=== PATIENT | female | born 1985 | race Caucasian/White ===

== ENCOUNTER 2021-12-09 07:20 | Emergency (ER) | payer OTHER ==
[~2021-12-09] VITALS: Ht 162.6 cm; Wt 93.0 kg
--- NOTE | 2021-12-09 07:25 | NUR ---
Dr. Shelby examining patient.
[2021-12-09 07:39] VITALS: BP 117/58
[2021-12-09] MEDS ORDERED: NACL 0.9% 1,000 ML IV ONE (07:40)
[2021-12-09] MEDS ORDERED: LIDOCAINE MPF 1% 10 MG/ML VIAL IM ONE (07:40)
[2021-12-09] MEDS ORDERED: MORPHINE SULFATE 4 MG/ML SYR IVP ONE (07:40)
[2021-12-09] MEDS ORDERED: AMPICILLIN/SULBACTAM 1.5 GM in NACL 0.9% 50 ML IV ONE (07:40)
--- NOTE | 2021-12-09 07:43 | NUR ---
36/F PRESENTS TO ED WITH DOG BITE TO LEFT LOWER EXTREMITY. PATIENT STATES SHE WAS BIT BY A "STRAY PIT BULL" AT A LOCAL PARK X20 MIN AGO. BLEEDING CONTROLLED WITH PRESSURE DRESSING IN PLACE. TWO LARGE LACERATIONS NOTED TO LOWER LEG.
[2021-12-09] MEDS ORDERED: LIDOCAINE/EPI 1% 1:100000 20 ML VIAL INJ ONE ×3 (07:53→08:36)
[2021-12-09] MEDS ORDERED: AMPICILLIN/SULBACTAM 1.5 GM VIAL ONE (07:53)
--- NOTE | 2021-12-09 08:48 | NUR ---
lido administered by ermd. per ermd, override lido 20ml vials.
[2021-12-09 08:49] VITALS: BP 131/62
[2021-12-09] MEDS ORDERED: LIDOCAINE/EPI 2% 1:100000 20 ML VIAL INJ ONE (08:52)
[2021-12-09] MEDS ORDERED: AMOX-1230 PO (10:40)
[2021-12-09] MEDS ORDERED: BACITRACIN OINT 500 UNITS/GM PKT TP ONE ×2 (10:42→10:50)
--- NOTE | 2021-12-09 10:45 | NUR ---
Patient discharged with v/s stable. Written and verbal after care instructions given and explained. Patient alert, oriented and verbalized understanding of instructions. Ambulatory with steady gait. All questions addressed prior to discharge. ID band removed. Patient advised to follow up with PMD. Rx of ATBX given. Patient educated on indication of medication including possible reaction and side effects. Opportunity to ask questions provided and answered.
== END 2021-12-09 10:45 | disposition home or self-care (01) ==
LOC: MED 07:20
DX: S81.812A Laceration without foreign body, left lower leg, initial encounter (principal); F17.210 Nicotine dependence, cigarettes, uncomplicated; W54.0XXA Bitten by dog, initial encounter; Y93.89 Activity, other specified; Y92.89 Other specified places as the place of occurrence of the external cause; Y99.8 Other external cause status
CPT/HCPCS: 12005; 73590; 90471; 90715; 96365; 96375; 99284; J0295; J2001; J2270; J7030; Q0092; 96374

== ENCOUNTER 2021-12-20 15:23 | Inpatient (IN) | payer OTHER ==
[~2021-12-20] VITALS: Ht 162.6 cm; Wt 98.4 kg
[~2021-12-20 15:23] MED LIST: AMOX-1230 PO
--- NOTE | 2021-12-20 15:38 | NUR ---
pt name called no answer at this time
--- NOTE | 2021-12-20 15:51 | NUR ---
lwbs at this time
--- NOTE | 2021-12-20 15:51 | NUR ---
pt name called no answer at this time
--- NOTE | 2021-12-20 16:08 | NUR ---
pt entered lobby at this time
[2021-12-20 16:27] VITALS: BP 145/93
--- NOTE | 2021-12-20 16:33 | NUR ---
36 y/o female, pt here for wound recheck. pt was attacked by dog last week and had sutures placed on left lower leg. site appears red and has some swelling around area. denies nausea, vomiting, diarrhea. skin is pink/warm/dry. a&o x4 with even and steady gait. lungs clear bl, heart rate even and regular. pt denies any fever, cp, sob, or cough at this time. pt states pain is 1/10 at this time. vss. kodyd made aware of pt. pmh: denies nka med: denies
[2021-12-20] MEDS ORDERED: AMPICILLIN/SULBACTAM 3 GM in NACL 0.9% 100 ML IV ONE (17:05)
[2021-12-20 17:29] LABS: BASOPHILS # (AUTO) 0.1 K/uL (0.00-0.22); BASOPHILS % (AUTO) 0.8 % (0.0-2.0); EOSINOPHILS # (AUTO) 0.1 K/uL (0-0.4); EOSINOPHILS % (AUTO) 1.1 % (0.0-4.0); HEMATOCRIT 39.9 % (36-48); HEMOGLOBIN 13.2 g/dL (12.0-16.0); LYMPHOCYTES # (AUTO) 1.9 K/uL (2.5-16.5); LYMPHOCYTES % (AUTO) 23.1 % (20.5-51.1); MEAN CORPUSCULAR HEMOGLOBIN 30 pg (27-31); MEAN CORPUSCULAR HGB CONC 33 g/dL (33-37); MEAN CORPUSCULAR VOLUME 90.6 fL (80-94); MONOCYTES # (AUTO) 0.4 K/uL (0.8-1.0); MONOCYTES % (AUTO) 4.6 % (1.7-9.3); NEUTROPHILS # (AUTO) 5.8 K/uL (1.8-7.7); NEUTROPHILS % (AUTO) 70.4 % (42.2-75.2); PLATELET COUNT (AUTO) 414 K/uL (140-450); RED BLOOD CELL COUNT(AUTO) 4.41 MIL/uL (4.20-5.40); RED CELL DISTRIBUTION WIDTH 13.7 % (11.6-13.7); WHITE BLOOD COUNT (AUTO) 8.3 K/uL (4.8-10.8)
[2021-12-20] MEDS ORDERED: NACL 0.9% 1,000 ML IV ONE (17:40)
[2021-12-20 17:52] LABS: ALBUMIN 3.8 g/dL (3.4-5.0); ANION GAP 13.1 (8-16); CARBON DIOXIDE 29.5 mmol/L (21-32); CREATININE 0.9 mg/dL (0.6-1.3); POTASSIUM 3.6 mmol/L (3.5-5.1); TOTAL BILIRUBIN 0.4 mg/dL (0.0-1.0)
--- NOTE | 2021-12-20 19:30 | NUR ---
PATIENT CALL TO BE SWAB FOR JENNY , NO RESPONSE. CALL AT HER CELLPHONE NO ANSWERING
--- NOTE | 2021-12-20 19:43 | NUR ---
CALL FOR THE SECOND TIME ,CALLING FROM HER CELLPHONE, NO ANSWER
--- NOTE | 2021-12-20 19:55 | NUR ---
PATIENT SHOW UP. SWAB FOR JENNY DONE AND SENT TO THE LAB
[2021-12-20] MEDS ORDERED: LORazepam 1 MG TAB PO PRN (20:10)
[2021-12-20] MEDS ORDERED: ONDANSETRON 4 MG/2 ML VIAL IVP PRN (20:10)
[2021-12-20] MEDS ORDERED: ACETAMINOPHEN 325 MG TAB PO PRN (20:10)
[2021-12-20] MEDS ORDERED: ZOLPIDEM 5 MG TAB PO PRN (20:10)
[2021-12-20] MEDS ORDERED: IBUPROFEN 400 MG TAB PO PRN (20:10)
[2021-12-20] MEDS ORDERED: MORPHINE SULFATE 4 MG/ML SYR IVP PRN (20:10)
[2021-12-20] MEDS ORDERED: HYDROcodone/APAP 5/325 MG 1 TAB TAB PO PRN (20:10)
[2021-12-20] MEDS ORDERED: AMPICILLIN/SULBACTAM 3 GM VIAL ONE (22:46)
--- NOTE | 2021-12-21 00:51 | NUR ---
PT IN ROOM 5 IN [facility]. PT IS A [employer] HOLD . 20G IN L AC.
--- NOTE | 2021-12-21 01:11 | NUR ---
36YR OLD FEMALE C/O WOUND RECHECK DOG BITE L L LEG. REDDNESS AND SWELLING AROUND LACERATIONS URIAS. A&OX4 RESP EVEN AND UNLABORED. DENIES PAIN. NO DRAINAGE NOTED. PT IS ADMITED TO MEDSURG /HOLD. PT RESTING IN BED SIDE RAILS UP X1. BED AT LOWEST POSITION NKDA
--- NOTE | 2021-12-21 03:18 | NUR ---
PT UP TO BATHROOM WITH STEADY GAIT. PENDING BED STATUS.
--- NOTE | 2021-12-21 05:02 | NUR ---
COVID SWAB COLLECTED AND SENT
[2021-12-21] MEDS ORDERED: AMPICILLIN/SULBACTAM 3 GM VIAL ONE ×3 (06:31→23:42)
[2021-12-21] MEDS: AMPICILLIN/SULBACTAM 3 GM in NACL 0.9% 100 ML IV SCH ×5 (06:55→23:59)
--- NOTE | 2021-12-21 07:10 | NUR ---
MED RECONCILE UPDATED
[2021-12-21 07:17] LABS: BASOPHILS % (AUTO) 0.5 % (0.0-2.0); EOSINOPHILS # (AUTO) 0.1 K/uL (0-0.4); EOSINOPHILS % (AUTO) 1.5 % (0.0-4.0); LYMPHOCYTES # (AUTO) 2.2 K/uL (2.5-16.5); LYMPHOCYTES % (AUTO) 24.1 % (20.5-51.1); MEAN CORPUSCULAR HEMOGLOBIN 30 pg (27-31); MEAN CORPUSCULAR HGB CONC 33 g/dL (33-37); MEAN CORPUSCULAR VOLUME 90.5 fL (80-94); MONOCYTES # (AUTO) 0.7 K/uL (0.8-1.0); MONOCYTES % (AUTO) 7.4 % (1.7-9.3); NEUTROPHILS % (AUTO) 66.5 % (42.2-75.2); PLATELET COUNT (AUTO) 352 K/uL (140-450); RED BLOOD CELL COUNT(AUTO) 3.98 MIL/uL (4.20-5.40); RED CELL DISTRIBUTION WIDTH 13.6 % (11.6-13.7); WHITE BLOOD COUNT (AUTO) 9.1 K/uL (4.8-10.8)
--- NOTE | 2021-12-21 07:22 | NUR ---
REPORT RECIEVED FROM DAFNE CAMARGO FOR TRANSFER OF CARE.
[2021-12-21 07:49] LABS: ALBUMIN 3.1 g/dL (3.4-5.0); CARBON DIOXIDE 26.2 mmol/L (21-32); CREATININE 0.8 mg/dL (0.6-1.3); POTASSIUM 4.2 mmol/L (3.5-5.1); TOTAL BILIRUBIN 0.3 mg/dL (0.0-1.0)
--- NOTE | 2021-12-21 08:27 | NUR ---
Patient was offered her breakfast tray. Tray left at bedside.
[2021-12-21] MEDS: DOCUSATE SODIUM 100 MG GELCAP PO SCH (09:30)
[2021-12-21] MEDS ORDERED: VANCOMYCIN PER PHARMACY MC PRN (09:35)
[2021-12-21] MEDS: ENOXAPARIN 40 MG/0.4 ML SYR SUBQ SCH (09:37)
--- NOTE | 2021-12-21 09:38 | NUR ---
Patient's breakfast tray was set up and patient is sitting up eating food.
--- NOTE | 2021-12-21 10:10 | NUR ---
Patient ambulated to the restroom with steady gait.
[2021-12-21] MEDS: VANCOMYCIN 1,500 MG in DEXTROSE 5% 500 ML IV SCH ×2 (11:23→22:10)
--- NOTE | 2021-12-21 12:50 | NUR ---
Patient ambulated to restroom with steady gait.
--- NOTE | 2021-12-21 13:01 | NUR ---
Patient has lunch tray at bedside. Patient says she will eat later.
--- NOTE | 2021-12-21 14:06 | NUR ---
PATIENT HAS BEEN SCREENED AND CATEGORIZED LOW NUTRITION RISK. PATIENT WILL BE SEEN WITHIN 7 DAYS OF ADMISSION. 12/27/[address]
--- NOTE | 2021-12-21 15:12 | NUR ---
DC PLANNING: THE PATIENT PRESENTED FROM HOME S/P DOG BITE TO THE [facility] ON 12/09 WITH OP ABX PRESCRIBED. AREA CONTINUES TO BE RED AND WARM, PATIENT ADMITTED WITH DX OF CELLULITIS TO THE [facility]. GIVEN UNASYN IN THE ED, LACTIC ACID 3.1, HR 94, INFECTIOUS DISEASE CONSULT ORDERED. PATIENT CONTINUED ON UNASYN IV AND VANCOMYCIN, BLOOD CULTURES IN PROCESS. PATIENT TO RETURN HOME WHEN CLINICALLY STABLE, CM WILL FOLLOW.
--- NOTE | 2021-12-21 16:09 | NUR ---
Patient ambulated to restroom with steady gait.
--- NOTE | 2021-12-21 18:09 | NUR ---
Patient was offered her dinner tray. Patient is sitting up eating meal.
--- NOTE | 2021-12-21 19:19 | NUR ---
Pt report given to DAFNE Alvares. Transfer of care at this time.
--- NOTE | 2021-12-21 19:45 | NUR ---
RECEIVED REPORT FROM SAVAGE LEOS. PATIENT WAS STABLE AT THE BEDSIDE REPORT. PATIENT WAS ABLE TO VERBALIZE HER UNDERSTANDING OF HER REASON FOR HER HOSPITAL STAY. PATIENT WAS BREATHING UNLABORED. SHE DID NOT COMPLAIN OF PAIN/DISCOMFORT AT THIS TIME. PATIENT IS AMBULATORY TO RESTROOM. SIDE RAILS UP X 2 FOR COMFORT AND ADJUSTMENT. CALL LIGHT WAS WORKING AND PATIENT IS AWARE OF HOW TO USE ALL THE FUNCTIONS. PATIENT EXPLAINED TO NURSING THAT HER ROOMMATE WILL COME TO DROP OFF AN CHARGE BLOCK TO CHARGE HER PHONE BUT MADE THREATS TO COME IN AND BE AT HER SIDE. PATIENT DOES NOT WANT ANY VISITORS ESPECIALLY HIM (CHATA CASTILLO). PATIENT WAS ENCOURAGED TO USE THE CALL LIGHT FOR NEEDS AND ASSISTANCE. PATIENT UNDERSTOOD AND AGREED. [email or web address]
--- NOTE | 2021-12-21 19:46 | NUR ---
Patient will be admitted to care of . Admited to MED SURG. Will go to [facility]. Belongings list completed. Report to FREEMAN.
[2021-12-21 20:00] VITALS: BP 130/83
--- NOTE | 2021-12-21 20:34 | NUR ---
SECURITY WAS INFORMED OR PATIENT'S REQUEST FOR NO VISITORS UNLESS THEY ARE AWARE OF A PASSWORD. PATIENT TO SAY DIFFERENT. NURSING CHARGE NURSE WAS MADE AWARE OF THESE CIRCUMSTANCES. [email or web address]
--- NOTE | 2021-12-21 23:07 | NUR ---
PATIENT NOTED IN BED ON HER PHONE. NURSING NOTED SHE IS NOT IN PAIN/DISCOMFORT. IV ANTIBIOTIC WAS STARTED BY COVER RN. NO NOTED DISTRESS. SIDE RAILS UP X 2 FOR SAFETY AND COMFORT.PATIENT HAS CALL LIGHT WITHIN REACH. BED AT THE LOWEST LEVEL. [email or web address]
--- NOTE | 2021-12-22 01:46 | NUR ---
PATIENT IN BED ASLEEP. NO NOTED S/S OF PAIN/DISCOMFORT. PATIENT CHEST WAS RISING AND FALLING WITHOUT INCIDENT OF DISTRESS. SIDE RAILS UP X 2 FOR SAFETY AND COMFORT. CALL LIGHT WITHIN REACH. [email or web address]
--- NOTE | 2021-12-22 03:52 | NUR ---
PATIENT IN BED ASLEEP WITH HEAD UNDER COVERS. NURSING NOTED NO NOTED S/SX OF PAIN/DISCOMFORT. NURSING NOTED NO NOTED RESPIRATORY DISTRESS. CHEST RISING AND FALL EVENLY WITHOUT LABORED EFFORTS. SIDE RAILS UP X 4 CALL LIGHT WITHIN REACH. [email or web address] Addendum: 12/22/21 at 0356 by Ariana Morales LVN WRONG PATIENT. [email or web address]
--- NOTE | 2021-12-22 03:52 | NUR ---
PATIENT IN BED ASLEEP. NO NOTED S/SX OF PAIN/DISCOMFORT. NO NOTED RESPIRATORY DISTRESS. CHEST RISING AND FALL EVENLY WITHOUT LABORED EFFORTS. SIDE RAILS UP X 2 CALL LIGHT WITHIN REACH. [email or web address]
[2021-12-22 04:00] VITALS: BP 121/76
[2021-12-22] MEDS ORDERED: AMPICILLIN/SULBACTAM 3 GM VIAL ONE (04:43)
[2021-12-22] MEDS: AMPICILLIN/SULBACTAM 3 GM in NACL 0.9% 100 ML IV SCH ×4 (05:20→23:10)
[2021-12-22 07:19] LABS: BASOPHILS # (AUTO) 0.1 K/uL (0.00-0.22); BASOPHILS % (AUTO) 0.7 % (0.0-2.0); EOSINOPHILS # (AUTO) 0.1 K/uL (0-0.4); EOSINOPHILS % (AUTO) 1.5 % (0.0-4.0); HEMATOCRIT 37.3 % (36-48); HEMOGLOBIN 12.5 g/dL (12.0-16.0); LYMPHOCYTES # (AUTO) 2.3 K/uL (2.5-16.5); MEAN CORPUSCULAR HEMOGLOBIN 30 pg (27-31); MEAN CORPUSCULAR HGB CONC 34 g/dL (33-37); MEAN CORPUSCULAR VOLUME 90.1 fL (80-94); MONOCYTES # (AUTO) 0.4 K/uL (0.8-1.0); MONOCYTES % (AUTO) 5.3 % (1.7-9.3); NEUTROPHILS % (AUTO) 63.5 % (42.2-75.2); PLATELET COUNT (AUTO) 333 K/uL (140-450); RED BLOOD CELL COUNT(AUTO) 4.14 MIL/uL (4.20-5.40); RED CELL DISTRIBUTION WIDTH 13.7 % (11.6-13.7); WHITE BLOOD COUNT (AUTO) 7.9 K/uL (4.8-10.8)
--- NOTE | 2021-12-22 07:30 | NUR ---
RECEIVED REPORT FROM FITNESS SALES CONSULTANT NURSE. NO S/S OF DISTRESS. CALL LIGHT IN REACH. ALL SAFETY MEASURES IN PLACE. IV FLUIDS RUNNING PER MD ORDER. NO COMPLAINTS OF PAIN AT THIS TIME
[2021-12-22 07:35] LABS: FREE T4 (FREE THYROXINE) 0.71 ng/dL (0.76-1.46); THYROID STIMULATING HORMONE 14.36 uIU/mL (0.34-3.74)
[2021-12-22 07:56] LABS: ALBUMIN 3.2 g/dL (3.4-5.0); ANION GAP 10.8 (8-16); CARBON DIOXIDE 27.9 mmol/L (21-32); CREATININE 0.7 mg/dL (0.6-1.3); POTASSIUM 3.7 mmol/L (3.5-5.1); TOTAL BILIRUBIN 0.3 mg/dL (0.0-1.0)
[2021-12-22] MEDS: DOCUSATE SODIUM 100 MG GELCAP PO SCH (09:00)
--- NOTE | 2021-12-22 09:05 | NUR ---
WOUND CARE NOTE: PT. VISITED [facility] ON 12/09/2021 FOR LLE MULTIPLE DOG BITE WOUNDS WITH SUTURES DONE BY DR. ALONSO.POC DISCUSSED WITH ER DR. GARAY AND CONFIRMED SUTURES ARE NOT DISSOLVABLE. TODAY'S ASSESSMENT LLE MULTIPLE WOUNDS SUTURES IN PLACE WOUND BEDS DRY BROWN SCAB WITH LEFT MEDIAL LOWER LEG A 0.5X2CM INTACT CLEAR FLUID BLISTERING SKIN, HALLEY WOUND SKIN DRY INTACT. LLE CELLULITIS NO ERYTHEMA, NORMAL SKIN TEMP. PER. PT. LOT OF IMPROVEMENT NOTICE, PIN [id number]. INFORM REQUIRE ORDER FOR SUTURE REMOVAL. POC DISCUSSED WITH PT. WITH WOUND CARE INSTRUCTIONS GIVEN. PT. VERBALIZES UNDERSTANDING. POC DISCUSSED WITH PRIMARY RN STEVEN. RECOMMENDATIONS: -PENDING ORDER FOR SUTURES REMOVAL -APPLY VERSATEL DRESSING TO LEFT MEDIAL LOWER LEG Q5 DAYS AND PRN IF SOILING -PAINT LLE SCABS WITH BETADINE MESHA. BID AND WATERMASTER
--- NOTE | 2021-12-22 09:26 | NUR ---
EDUCATED PT ON MEDICATIONS BEING ADMINISTERED. PT REFUSED DOCUSATE DUE TO NORMAL BOWEL FUNCTION, PT WILL INFORM STAFF IF CONSTIPATION OR HARD STOOL OCCURS AND MEDICATION IS NEEDED. MEDICATION DISPOSED OF AFTER OPENING
[2021-12-22] MEDS: ENOXAPARIN 40 MG/0.4 ML SYR SUBQ SCH (09:32)
[2021-12-22] MEDS: VANCOMYCIN 1,500 MG in DEXTROSE 5% 500 ML IV SCH ×2 (11:03→23:48)
[2021-12-22 12:00] VITALS: BP 132/79
--- NOTE | 2021-12-22 14:00 | NUR ---
PT REQUESTED TO BE PREMEDICATED BEFORE SUTURE REMOVAL. ADMINISTERED PAIN MEDICATION PER MD ORDER. ALL SAFETY MEASURE IN PLACE
--- NOTE | 2021-12-22 16:14 | NUR ---
SUTURES REMOVED PER MD ORDER, PT TOLERATED WELL. NO S/S OF DISTRESS. EDEMA STILL NOTED IN LLE, COOL TO THE TOUCH, BLANCHABLE
--- NOTE | 2021-12-22 19:08 | NUR ---
ENDORSED PT TO PROOFER NURSE. NO S/S OF DISTRESS. CALL LIGHT IN REACH. ALL SAFETY MEASURES IN PLACE
--- NOTE | 2021-12-22 19:09 | NUR ---
RECEIVED REPORT FROM STEVEN MATTHEWS, PATIENT WAS STABLE DURING SHIFT REPORT. PATIENT WAS ABLE TO EXPLAIN REASON FOR HOSPITAL VISIT. PATIENT WANTS A BATH. NURSING WILL ASK FOR BATHROOM/SHOWER PRIVILEGES FROM MD. PATIENT WAS ABLE TO BREATH EVENLY WITHOUT DISTRESS. FAMILY AND PATIENT WAS EXPLAINED PLANS FOR FOR HER CARE AT THIS TIME AND POSSIBLE DISCHARGE DATE IN THE FUTURE. PATIENT DENIED ANY PAIN AT THIS TIME. SIDE RAILS UP X 2. BED AT THE LOWEST STAGE. PATIENT WAS ENCOURAGED TO USE THE CALL LIGHT FOR ASSISTANCE. PATIENT UNDERSTANDS AND AGREES. [email or web address]
[2021-12-22 20:00] VITALS: BP 131/91
--- NOTE | 2021-12-22 20:00 | NUR ---
REVIEWED PLAN OF CARE WITH KAITLYN MARTINEZ LVN. [email or web address]
[2021-12-22] MEDS: metroNIDAZOLE 500 MG TAB PO SCH (21:00)
--- NOTE | 2021-12-22 23:55 | NUR ---
PATIENT WAS ABLE TO HAVE A SHOWER PER MD ORDERS. DRESSING TO LEFT LOWER EXTREMITY WAS WRAPPED BEFORE SHOWER. ALL ORAL MEDICATIONS WERE GIVEN WITHOUT INCIDENT. NURSING INFORMED IF ANY SIDE EFFECTS ARE NOTED PLEASE USE THE CALL LIGHT TO CALL THE NURSE FOR ASSISTANCE. PATIENT UNDERSTOOD AND AGREED. [email or web address]
--- NOTE | 2021-12-23 01:40 | NUR ---
DURING ROUNDS, NURSING NOTED PATIENT ASLEEP IN BED WITHOUT INCIDENT. NO S/S OF PAIN. NO S/S OF RESPIRATORY DISTRESS. SIDE RAILS UP X 2 FOR SAFETY. CALL LIGHT WITHIN REACH FOR ASSISTANCE. [email or web address]
[2021-12-23] MEDS: GAUZE TP SCH ×2 (01:46→13:00)
--- NOTE | 2021-12-23 03:56 | NUR ---
DURING ROUNDS, NURSING NOTED PATIENT ASLEEP IN BED WITHOUT INCIDENT. NO S/S OF PAIN. NO S/S OF RESPIRATORY DISTRESS. SIDE RAILS UP X 2 FOR SAFETY. CALL LIGHT WITHIN REACH FOR ASSISTANCE/ENTERTAINMENT. [email or web address]
[2021-12-23 04:00] VITALS: BP 119/58
[2021-12-23] MEDS: AMPICILLIN/SULBACTAM 3 GM in NACL 0.9% 100 ML IV SCH ×2 (05:10→11:11)
[2021-12-23] MEDS ORDERED: LEVOTHYROXINE 0.05 MG TAB PO SCH (06:30)
[2021-12-23 07:24] LABS: HEMATOCRIT 33.4 % (36-48); HEMOGLOBIN 11.3 g/dL (12.0-16.0); LYMPHOCYTES % (AUTO) 28.4 % (20.5-51.1); MEAN CORPUSCULAR HEMOGLOBIN 31 pg (27-31); MEAN CORPUSCULAR HGB CONC 34 g/dL (33-37); MEAN CORPUSCULAR VOLUME 90.2 fL (80-94); MONOCYTES % (AUTO) 6.9 % (1.7-9.3); NEUTROPHILS % (AUTO) 61.5 % (42.2-75.2); PLATELET COUNT (AUTO) 305 K/uL (140-450); RED CELL DISTRIBUTION WIDTH 13.7 % (11.6-13.7); WHITE BLOOD COUNT (AUTO) 8.7 K/uL (4.8-10.8)
[2021-12-23 07:25] LABS: ANION GAP 9.4 (8-16); BASOPHILS # (AUTO) 0.1 K/uL (0.00-0.22); BASOPHILS % (AUTO) 0.6 % (0.0-2.0); CARBON DIOXIDE 28.9 mmol/L (21-32); EOSINOPHILS # (AUTO) 0.2 K/uL (0-0.4); EOSINOPHILS % (AUTO) 2.6 % (0.0-4.0); LYMPHOCYTES # (AUTO) 2.5 K/uL (2.5-16.5); MONOCYTES # (AUTO) 0.6 K/uL (0.8-1.0); NEUTROPHILS # (AUTO) 5.4 K/uL (1.8-7.7); POTASSIUM 3.3 mmol/L (3.5-5.1)
--- NOTE | 2021-12-23 07:25 | NUR ---
ENDORSED PATIENT CARE TO TANYA LEOS, PATIENT WAS STABLE DURING THE SHIFT CHANGE. [email or web address]
[2021-12-23 07:26] LABS: ALBUMIN 2.9 g/dL (3.4-5.0); CREATININE 0.7 mg/dL (0.6-1.3); TOTAL BILIRUBIN 0.2 mg/dL (0.0-1.0)
--- NOTE | 2021-12-23 07:30 | NUR ---
RECEIVED REPORT FROM DANCE INSTRUCTOR NURSE FOR CONTINUITY OF CARE. PATIENT ASLEEP NO DISTRESS NOTED. NO DISTRESS NOTED. RESPIRATION EVEN AND NOT LABORED NO SHORTNESS OF BREATH. ON ROOM AIR. IV SITE RIGHT HAND JCARLOS 20 SALINE LOCK.
--- NOTE | 2021-12-23 08:00 | NUR ---
Patient's Plan of Care was discussed and reviewed with OUTPATIENT COORDINATOR: TANYA
[2021-12-23] MEDS: DOCUSATE SODIUM 100 MG GELCAP PO SCH (08:40)
[2021-12-23] MEDS: metroNIDAZOLE 500 MG TAB PO SCH (08:40)
[2021-12-23] MEDS: ENOXAPARIN 40 MG/0.4 ML SYR SUBQ SCH (08:42)
--- NOTE | 2021-12-23 08:46 | NUR ---
PATIENT AWAKE ORIENTED GIVEN HER ALL DUE MEDICATION TOLERATED WELL. CALL LIGHT WITH IN EASY REACH.
--- NOTE | 2021-12-23 10:47 | NUR ---
P[ATIENT POTASSIUM LEVEL IS 3.[address] ORDER INFORM [address] BUTTS WAITING FOR RESPONSE.
[2021-12-23] MEDS: VANCOMYCIN 1,500 MG in DEXTROSE 5% 500 ML IV SCH (11:58)
--- NOTE | 2021-12-23 12:30 | NUR ---
PATIENT ALERT ON HIS BED TRIED TO EAT LUNCH. I INFORM HER OF THE DISCHARGE ORDER.
[2021-12-23] MEDS ORDERED: SYN.05 PO (12:40)
[2021-12-23] MEDS ORDERED: AMOX-999 PO (12:40)
[2021-12-23] MEDS ORDERED: SULF-59 PO (12:40)
[2021-12-23] MEDS ORDERED: POTASSIUM CHLORIDE 10 MEQ TABER PO SCH (13:00)
[2021-12-23 13:32] VITALS: BP 120/62
--- NOTE | 2021-12-23 15:41 | NUR ---
PATIENT ALERT ORIENTED NO DISTRESS NOTED. PATIENT COMPLAIN OF PAIN ON HE RIGHT HAND NOTED WITH SWELLING AND SHE SAID THE IV IS PULLED OUT ACCIDENTALLY. PUT BANDAGE AND ENCOURAGE TO ELEVATE THE HAND. TREATMENT ON LEFT LEG DONE. GIVEN DISCHARGE PACKET GIVEN WITH INSTRUCTION. VERBALIZED UNDERSTANDING.
--- NOTE | 2021-12-23 17:00 | NUR ---
PATIENT ALERT ORIENTED ON STABLE CONDITION. TOOK ALL BELONGING AND DISCHARGE PAPER. PATIENT WALK GOING OUT TO HER RIDE OUTSIDE.
== END 2021-12-23 17:00 | disposition home or self-care (01) | DRG 351 ==
LOC: MED 15:23 → MTU 20:23
PROVIDERS: ADMIT Hospitalist; ATTEND Hospitalist
DX: S81.852A Open bite, left lower leg, initial encounter (principal); E87.2 Acidosis; R65.10 Systemic inflammatory response syndrome (SIRS) of non-infectious origin without acute organ dysfunction; L03.116 Cellulitis of left lower limb; A59.9 Trichomoniasis, unspecified; E03.9 Hypothyroidism, unspecified; R74.02 Elevation of levels of lactic acid dehydrogenase [LDH]; Z20.822 Contact with and (suspected) exposure to COVID-19; W54.0XXA Bitten by dog, initial encounter; Y93.89 Activity, other specified; Y92.89 Other specified places as the place of occurrence of the external cause; Y99.8 Other external cause status
CPT/HCPCS: 36415; 80053; 80202; 83605; 84439; 84443; 85025; 87040; 87081; 96365; 96372; 99285; J0295; J1650; J3370; J7030; J7060

== ENCOUNTER 2022-03-15 22:47 | Emergency (ER) | payer OTHER ==
[~2022-03-15] VITALS: Ht 162.6 cm; Wt 98.9 kg
[~2022-03-15 22:47] MED LIST changes: -AMOX-1230 PO; +AMOX-999 PO; +SULF-59 PO; +SYN.05 PO
[2022-03-15 23:24] VITALS: BP 130/83
--- NOTE | 2022-03-15 23:29 | NUR ---
PT TAKEN TO BED 3
[2022-03-16] MEDS ORDERED: cefTRIAXone 1,000 MG in LIDOCAINE MPF 1% 2.1 ML IM ONE (01:15)
[2022-03-16] MEDS ORDERED: cefTRIAXone 1,000 MG VIAL ONE (01:23)
[2022-03-16] MEDS ORDERED: LIDOCAINE MPF 1% 5 ML ONE (01:23)
--- NOTE | 2022-03-16 01:35 | NUR ---
X-Ray at bedside.
--- NOTE | 2022-03-16 02:00 | NUR ---
Ultrasound at bedside.
[2022-03-16] MEDS ORDERED: NAPR-54 PO (02:37)
[2022-03-16] MEDS ORDERED: CEPH-588 PO (02:37)
--- NOTE | 2022-03-16 02:50 | NUR ---
Patient discharged with v/s stable. Written and verbal after care instructions given and explained. Patient alert, oriented and verbalized understanding of instructions. Ambulatory with to car. All questions addressed prior to discharge. ID band removed. Patient advised to follow up with PMD. Rx of Keflex, and Naprosyn given. Patient educated on indication of medication including possible reaction and side effects. Opportunity to ask questions provided and answered.
[2022-03-16 02:52] VITALS: BP 135/86
== END 2022-03-16 02:53 | disposition home or self-care (01) ==
LOC: MED 22:47
DX: L03.116 Cellulitis of left lower limb (principal); F17.210 Nicotine dependence, cigarettes, uncomplicated; Z72.89 Other problems related to lifestyle
CPT/HCPCS: 73590; 93971; 96372; 99284; J0696; J2001; Q0092

== ENCOUNTER 2022-03-16 22:47 | Inpatient (IN) | payer OTHER ==
[~2022-03-16] VITALS: Ht 162.6 cm; Wt 98.9 kg
[~2022-03-16 22:47] MED LIST changes: +CEPH-588 PO; +NAPR-54 PO
[2022-03-16 23:04] VITALS: BP 118/76
--- NOTE | 2022-03-16 23:12 | NUR ---
pt to lobby
[2022-03-16] MEDS ORDERED: VANCOMYCIN 1,000 MG in DEXTROSE 5% 250 ML IV ONE (23:55)
[2022-03-16] MEDS ORDERED: NACL 0.9% 1,000 ML IV ONE (23:55)
[2022-03-16] MEDS ORDERED: PIPERACILLIN/TAZOBACTAM 3.375 GM in DEXTROSE 5% 50 ML IV ONE (23:55)
[2022-03-17 00:07] LABS: BASOPHILS % (AUTO) 0.3 % (0.0-2.0); EOSINOPHILS # (AUTO) 0.1 K/uL (0-0.4); EOSINOPHILS % (AUTO) 0.5 % (0.0-4.0); HEMATOCRIT 35.7 % (36-48); HEMOGLOBIN 12.1 g/dL (12.0-16.0); LYMPHOCYTES # (AUTO) 1.2 K/uL (2.5-16.5); LYMPHOCYTES % (AUTO) 8.6 % (20.5-51.1); MEAN CORPUSCULAR HEMOGLOBIN 30 pg (27-31); MEAN CORPUSCULAR HGB CONC 34 g/dL (33-37); MEAN CORPUSCULAR VOLUME 89.4 fL (80-94); MONOCYTES # (AUTO) 0.6 K/uL (0.8-1.0); NEUTROPHILS # (AUTO) 12.5 K/uL (1.8-7.7); NEUTROPHILS % (AUTO) 86.6 % (42.2-75.2); PLATELET COUNT (AUTO) 274 K/uL (140-450); RED BLOOD CELL COUNT(AUTO) 3.99 MIL/uL (4.20-5.40); RED CELL DISTRIBUTION WIDTH 12.8 % (11.6-13.7); WHITE BLOOD COUNT (AUTO) 14.4 K/uL (4.8-10.8)
--- NOTE | 2022-03-17 00:12 | NUR ---
Patient stated she returned due to increased edema and redness from dog bite. Patient was in ER on 03/16/22 for initial assessment and treatment of dog bite. Dr. Bey at bedside with patient.
[2022-03-17 00:26] LABS: ALBUMIN 3.1 g/dL (3.4-5.0); ANION GAP 10.7 (8-16); CARBON DIOXIDE 30.4 mmol/L (21-32); POTASSIUM 4.1 mmol/L (3.5-5.1); TOTAL BILIRUBIN 0.4 mg/dL (0.0-1.0)
--- NOTE | 2022-03-17 00:55 | NUR ---
Patient at CT.
[2022-03-17] MEDS ORDERED: MAG SULF 2000 MG/WATER PREMIX 50 ML IV PRN (01:00)
[2022-03-17] MEDS ORDERED: MORPHINE SULFATE 4 MG/ML SYR IVP PRN (01:00)
[2022-03-17] MEDS ORDERED: KCL 20 MEQ/WATER INJ PREMIX 200 ML IV PRN (01:00)
[2022-03-17] MEDS ORDERED: POTASSIUM CHLORIDE 10 MEQ TABER PO PRN (01:00)
[2022-03-17] MEDS ORDERED: ONDANSETRON 4 MG/2 ML VIAL IVP PRN (01:00)
[2022-03-17] MEDS ORDERED: ACETAMINOPHEN 325 MG TAB PO PRN (01:00)
[2022-03-17] MEDS ORDERED: HYDROcodone/APAP 5/325 MG 1 TAB TAB PO PRN (01:00)
[2022-03-17] MEDS ORDERED: MAGNESIUM OXIDE 400 MG TAB PO PRN (01:00)
--- NOTE | 2022-03-17 01:10 | NUR ---
Patient back from CT.
[2022-03-17 01:19] LABS: APPEARANCE,URINE CLEAR (CLEAR); BILIRUBIN,URINE 1+ (NEGATIVE); BLOOD, URINE NEGATIVE (NEGATIVE); COLOR,URINE DARK YELLOW (YELLOW); LEUKOCYTE ESTERASE ,URINE NEGATIVE (NEGATIVE); NITRITE, URINE NEGATIVE (NEGATIVE); UGLUCOSE NEGATIVE (NEGATIVE)
[2022-03-17] MEDS ORDERED: PIPERACILLIN/TAZOBACTAM 3.375 GM VIAL IV ONE (01:24)
[2022-03-17] MEDS ORDERED: VANCOMYCIN 1,000 MG VIAL ONE (01:48)
[2022-03-17 01:58] LABS: BARBITURATE, URINE NEGATIVE ng/ml (NEG <=200); BENZODIAZEPINE, URINE NEGATIVE ng/mL (NEG <=200); CANNABINOID, URINE POSITIVE ng/mL (NEG <=50); COCAINE, URINE POSITIVE ng/mL (NEG <=300); OPIATE, URINE POSITIVE ng/mL (NEG <=2000); PHENCYCLIDINE SCREEN,URINE NEGATIVE ng/mL (NEG <=25)
--- NOTE | 2022-03-17 02:00 | NUR ---
Patient resting in bed with eyes closed, A/Ox4, chest rise and fall symmetrical, no c/o pain or s/s of discomfort.
[2022-03-17] MEDS ORDERED: AMPICILLIN/SULBACTAM 3 GM VIAL ONE (03:05)
[2022-03-17] MEDS: AMPICILLIN/SULBACTAM 3 GM in NACL 0.9% 100 ML IV SCH ×3 (03:09→18:16)
--- NOTE | 2022-03-17 03:32 | NUR ---
Patient will be admitted to care of [facility] nurse Calvillo. Admited to [facility]. Will go to room 114. Belongings list completed. Bedside report given to [facility] nurse Calvillo. [facility] nurse Karli verbalzied understanding of report, no further questions. Patient transferred safely to bed in [facility] room 114. [facility] nurse Karli aware patient is Covid positive. IV infusing Unasyn 3GM at 100 mL/hr via 20G IV in LAC.
[2022-03-17 03:52] VITALS: BP 90/53
--- NOTE | 2022-03-17 03:52 | NUR ---
RECEIVED REPORT FROM ER NURSE ANDREY FOR CONTINUITY OF CARE. PT IS STABLE IN BED. A&OX2. PT IS SLEEPY SLURS WORDS. DIFFICULT TO AROUSE. ARRIVED FROM ER VIA GURNEY. TRANSFERRED TO UNIT BED. DENIES PAIN AT THIS TIME. ON RM AIR/O2 WITH NO ACUTE DISTRESS. RR EVEN AND UNLABORED WITH EQUAL CHEST RISE. GI INTACT. PT'S SKIN IS REDDENED BUT INTACT. PER REPORT PT HAS NO OPEN WOUNDS. MRSA SWAB DONE VSS: BP-90/53, P-82, RR-18, T-97.1, M1EIF=541%. PT HAS NO CLINICAL MED OR SURGICAL HISTORY. VENOUS DOPPLER -NEG, TIB/FIB X-RAY SHOWED MODERATE SWELLING. ADMIT DIAGNOSIS IS LEFT LOWER EXTREMITY CELLULITIS. PT IS COVID +. PT IS TOO SLEEPY TO RESPOND TO ADMISSION QUESTIONS. ALL SAFETY MEASURES IN PLACE. CALL LIGHT WITHIN REACH. CONTINUE FREQ VISUAL CHECKS.
--- NOTE | 2022-03-17 07:05 | NUR ---
RECEIVED ENDORSEMENT OF CARE FROM PLANT ACCOUNTANT NURSE SANDOVAL FOR CONTINUITY OF CARE. PT IS RESTING IN BED, NO SIGNS OF DISTRESS, NO LABORED BREATHING. PT IS A&OX3, LUNGS ARE CLEAR ON RA, PT IS POSITIVE FOR COVID, SKIN INTACT AND STEADY GAIT. PT HAS BATHROOM PRIVILEGES AND UP AB CHENTE. IV IS IN HER L AC 20 G INTACT, PATENT, AND SALINE LOCKED. PT COMPLAINS OF NO PAIN AT THIS TIME. PTS L LEG IS RED AND WARM TO TOUCH AND HAS TWO SCARS ON IT. ACCORDING TO PT MOM "PT WAS BITE BY A DOG BACK IN DECEMBER AND HER FINAL WOUND HAD JUST HEALED A LITTLE BIT AGO". VITALS ARE STABLE. ALL SAFETY MEASURES MET, CALL LIGHT WITHIN REACH, BED IN LOW POSITION AND TWO SIDE RAILS ARE UP. WILL CONTINUE TO MONITOR.
[2022-03-17 08:00] VITALS: BP 90/50
--- NOTE | 2022-03-17 10:32 | NUR ---
PATIENT HAS BEEN SCREENED AND CATEGORIZED LOW NUTRITION RISK. PATIENT WILL BE SEEN WITHIN 7 DAYS OF ADMISSION. 03/24/[address] REVIEWED BY ONUR [address]RA[address]
--- NOTE | 2022-03-17 13:41 | NUR ---
DC PLANNING PT CURRENTLY IN ISOLATION, THEREFORE, SW OUTREACHED TO PATIENT VIA TELEPHONE. PATIENT REPORTS RECENT (6 WEEKS) HOMELESSNESS. PATIENT REPORTS TYPICALLY STAYING AT A [facility] WITH 1-2 FRIENDS. PATIENT CURRENTLY STAYING AT [facility] IN [place]. PATIENT REQUESTING TO LEAVE ADDRESS LISTED ON FILE IT IS HER MAILING ADDRESS. PATIENT IDENTIFIES [place], .PATIENT REPORTS MEETING WITH PCP, NEEDED, LAST VISIT; DECEMBER 24. PT PROVIDED PERMISSION TO SCHEDULE F/UP. PATIENT DENIES TAKING MEDICATION AT THIS TIME AND DENIES BARRIERS IN ACCESSING MEDIATIONS, IF NEEDED. PATIENT REPORTS PICKING UP MEDICATION FROM [facility] [address] IN [place], WHEN NEEDED. PATIENT REPORTS BEING AMBULATORY AND DENIES USE OF DME. PATIENT IS ABLE TO COMPLETE ALL ADLS'S INDEPENDENTLY. . PT DENIES MH HX. PATIENT REPORTS SUBSTANCE USE HX, PRIMARY SUBSTANCE OF CHOICE; [employer]IJUA[employer]. PATIENT DENIES USE OF OTHER ILLICIT SUBSTANCES DESPITE TESTING POSITIVE FOR AMPHETAMINE, COCAINE, CANNABIS AND OPIATES AT ADMISSIONS. PATIENT ACCEPTED SUBSTANCE USE RESOURCES OFFERED BY . PATIENT REPORTS ADEQUATE FOOD SOURCE AND REPORTS ADEQUATE INCOME TO EAT. PATIENT REPORTS RECENTLY RECEIVING [employer] BENEFITS UNTIL 2 MONTHS AGO, PATIENT REPORTS SHE DID NOT RECERTIFY. PATIENT REPORTED SHE WOULD UTILIZE TIME IN HOSPITAL TO RECERTIFY. PATENT ACCEPTED HOMELESS RESOURCES. PATIENT REPORTS DC PLAN IS TO RETURN HOME, WITH FRIEND AND/OR FAMILY PROVIDING TRANSPORTATION. PT DENIES HX OF DIABETES, DIALYSIS, HH AND SNF PLACEMENT. Addendum: 03/18/22 at 1056 by Miguelito SCHRADER PROVIDED PATIENT WITH SUBSTANCE USE RESOURCE, EMERGENCY ASSISTANCE AND HOMELESS RESOURCES. PATIENT ACCEPTED ALL RESOURCES.
[2022-03-17 16:00] VITALS: BP 105/60
--- NOTE | 2022-03-17 19:10 | NUR ---
ENDORSEMENT OF CARE FROM TO CIRCUIT BOARD ASSEMBLER NURSE ANDREY FOR CONTINUITY OF CARE. PT STABLE AND SHOWS NO SIGNS OF DISTRESS.
--- NOTE | 2022-03-17 19:30 | NUR ---
RECEIVED REPORT FROM DAY SHIFT NURSE LAURA FOR CONTINUITY OF CARE. PATIENT IS A&O X4. PATIENT IS ON ROOM AIR, BREATHING IS NORMAL WITH SYMMETRICAL RISE AND FALL OF CHEST. IV IS A 20G LEFT AC, NO FLUIDS RUNNING AT THIS TIME (SALINE LOCKED). PATIENT IS SITTING UP IN BED. PATIENT IS TIRED, BUT WAS AWAKE AND CONVERSED WITH ME. PATIENT STATES THAT SHE IS DOING OKAY AND DOESN'T NEED ANYTHING. PATIENT STATES SHE WILL PROBABLY GO TO SLEEP. BED IS IN LOWEST POSITION WITH WHEELS LOCKED AND CALL LIGHT IN PLACE. WILL CONTINUE TO OBSERVE PATIENT.
[2022-03-17 20:00] VITALS: BP 136/85
--- NOTE | 2022-03-17 22:00 | NUR ---
LOOKED IN ON PATIENT; PATIENT WAS SITTING UP IN BED. ASKED PATIENT IF SHE NEEDED ANYTHING, PATIENT STATED NO. BREATHING WAS NORMAL WITH SYMMETRICAL RISE AND FALL OF CHEST. WILL CONTINUE TO OBSERVE PATIENT.
[2022-03-18] MEDS ORDERED: ceFAZolin 1,000 MG VIAL ONE (01:36)
--- NOTE | 2022-03-18 01:45 | NUR ---
LOOKED IN ON PATIENT. PATIENT WAS SLEEPING IN HIGH FOWLERS POSITION. WOKE PATIENT UP AND INFORMED PATIENT THAT I NEEDED TO ASSESS HER LEGS AND ADMINISTER IVPB MEDICATION. PATIENT STATED THAT IT WAS OKAY. LEFT LEG IS SWOLLEN, AND RED. URIAS ARE VISIBLE ON FRONT OF LEG BELOW THE KNEE AND ON CALF THAT LOOK LIKE HEALED WOUNDS, PATIENT STATES IT'S WHERE SHE WAS BIT BY A DOG LAST DECEMBER. RIGHT LEG APPEARS NORMAL WITH APPROPRIATE COLOR AND NO SIGN OF REDNESS OR EDEMA. IVPB WAS ADMINISTERED. PATIENT TOLERATED WELL. BREATHING WAS NORMAL WITH SYMMETRICAL RISE AND FALL OF CHEST. WILL CONTINUE TO OBSERVE PATIENT.
[2022-03-18 04:00] VITALS: BP 117/69
--- NOTE | 2022-03-18 04:00 | NUR ---
PATIENT'S ARRIVED IN LOBBY TO DROP OFF A BAG OF PERSONAL BELONGINGS AND FOOD TO PATIENT. PATIENT IS ON A REGULAR DIET. THE BAG WAS A WHITE STATER BROS BAG THAT HAD ITS HANDLES TIED IN A KNOT. I PICKED THE BAG UP FROM THE AND CARRIED IT TO PATIENT'S ROOM. PATIENT AND I WENT OVER CONTENTS TO MAKE SURE NOTHING WAS MISSING. PATIENT DID NOT SEE THE GARCIA THAT WAS SUPPOSED TO BE IN THE BAG. PATIENT CALLED , VERIFIED THAT HE DID NOT PUT ANY GARCIA IN THE BAG. PATIENT WAS SATISFIED WITH THE REST OF THE CONTENTS OF THE BAG, THEY WERE ACCURATE. I EXPLAINED TO THE PATIENT THAT ALTHOUGH SHE IS ON A REGULAR DIET, WE PREFER PATIENTS STICK TO EATING THE FOOD PROVIDED TO THEM BY THE HOSPITAL. SHE STATED THAT SHE UNDERSTOOD, BUT DID NOT LIKE THE FOOD IN THE HOSPITAL. I LET PATIENT HAVE THE CONTENTS OF THE BAG WHICH CONTAINED PERSONAL HYGIENE ITEMS, PATIENT'S JOURNAL NOTEBOOK, A CELL PHONE, CELL PHONE MANAGER OPERATIONS, CHARGING DEVICE, FOUR CANS OF SODA, A FEW BAGS OF CHIPS AND CANDY. WILL CONTINUE TO OBSERVE PATIENT.
--- NOTE | 2022-03-18 06:00 | NUR ---
LOOKED IN ON PATIENT. PATIENT WAS SLEEPING, LYING IN HIGH-FOWLERS POSITION. BREATHING WAS NORMAL WITH SYMMETRICAL RISE AND FALL OF CHEST. WILL CONTINUE TO OBSERVE PATIENT.
[2022-03-18 07:01] LABS: ALBUMIN 2.5 g/dL (3.4-5.0); ANION GAP 13.3 (8-16); CARBON DIOXIDE 27.7 mmol/L (21-32); CREATININE 0.7 mg/dL (0.6-1.3); TOTAL BILIRUBIN 0.2 mg/dL (0.0-1.0)
[2022-03-18 07:27] LABS: BASOPHILS % (AUTO) 0.3 % (0.0-2.0); EOSINOPHILS # (AUTO) 0.2 K/uL (0-0.4); EOSINOPHILS % (AUTO) 1.8 % (0.0-4.0); HEMATOCRIT 34.1 % (36-48); HEMOGLOBIN 11.4 g/dL (12.0-16.0); LYMPHOCYTES # (AUTO) 1.3 K/uL (2.5-16.5); LYMPHOCYTES % (AUTO) 14.5 % (20.5-51.1); MEAN CORPUSCULAR HEMOGLOBIN 31 pg (27-31); MEAN CORPUSCULAR HGB CONC 34 g/dL (33-37); MONOCYTES # (AUTO) 0.5 K/uL (0.8-1.0); MONOCYTES % (AUTO) 5.7 % (1.7-9.3); NEUTROPHILS # (AUTO) 6.8 K/uL (1.8-7.7); NEUTROPHILS % (AUTO) 77.7 % (42.2-75.2); PLATELET COUNT (AUTO) 250 K/uL (140-450); RED BLOOD CELL COUNT(AUTO) 3.71 MIL/uL (4.20-5.40); WHITE BLOOD COUNT (AUTO) 8.8 K/uL (4.8-10.8)
--- NOTE | 2022-03-18 07:40 | NUR ---
ENDORSED TO DAY SHIFT NURSE LEVON FOR CONTINUITY OF CARE. PATIENT IS STABLE.
[2022-03-18 16:00] VITALS: BP 110/70
--- NOTE | 2022-03-18 18:30 | NUR ---
PATIENT NOTED TO BE SLEEPING MOST OF THE DAY. PATIENT DIET AND FLUIDS WELL. NO C/O PAIN/ DISCOMFORT VOICED BY PATIENT ALL DAY.
[2022-03-19 00:15] VITALS: BP 116/70
[2022-03-19 06:51] LABS: BASOPHILS % (AUTO) 0.5 % (0.0-2.0); EOSINOPHILS # (AUTO) 0.1 K/uL (0-0.4); EOSINOPHILS % (AUTO) 2.3 % (0.0-4.0); HEMATOCRIT 33.7 % (36-48); HEMOGLOBIN 11.3 g/dL (12.0-16.0); LYMPHOCYTES # (AUTO) 1.5 K/uL (2.5-16.5); LYMPHOCYTES % (AUTO) 24.9 % (20.5-51.1); MEAN CORPUSCULAR HEMOGLOBIN 30 pg (27-31); MEAN CORPUSCULAR HGB CONC 34 g/dL (33-37); MEAN CORPUSCULAR VOLUME 90.1 fL (80-94); MONOCYTES # (AUTO) 0.5 K/uL (0.8-1.0); MONOCYTES % (AUTO) 7.5 % (1.7-9.3); NEUTROPHILS % (AUTO) 64.8 % (42.2-75.2); PLATELET COUNT (AUTO) 352 K/uL (140-450); RED BLOOD CELL COUNT(AUTO) 3.74 MIL/uL (4.20-5.40); RED CELL DISTRIBUTION WIDTH 12.7 % (11.6-13.7); WHITE BLOOD COUNT (AUTO) 6.1 K/uL (4.8-10.8)
[2022-03-19 07:04] LABS: ALBUMIN 2.3 g/dL (3.4-5.0); CREATININE 0.7 mg/dL (0.6-1.3); MAGNESIUM 1.9 mg/dL (1.8-2.4); TOTAL BILIRUBIN 0.1 mg/dL (0.0-1.0)
[2022-03-19 08:00] VITALS: BP 111/73
[2022-03-19 16:00] VITALS: BP 141/82
[2022-03-20 01:35] VITALS: BP 135/78
[2022-03-20 06:35] LABS: BASOPHILS % (AUTO) 0.6 % (0.0-2.0); EOSINOPHILS # (AUTO) 0.2 K/uL (0-0.4); EOSINOPHILS % (AUTO) 2.6 % (0.0-4.0); HEMATOCRIT 33.4 % (36-48); HEMOGLOBIN 11.2 g/dL (12.0-16.0); LYMPHOCYTES # (AUTO) 1.7 K/uL (2.5-16.5); LYMPHOCYTES % (AUTO) 23.8 % (20.5-51.1); MEAN CORPUSCULAR HEMOGLOBIN 30 pg (27-31); MEAN CORPUSCULAR HGB CONC 34 g/dL (33-37); MONOCYTES # (AUTO) 0.6 K/uL (0.8-1.0); MONOCYTES % (AUTO) 9.1 % (1.7-9.3); NEUTROPHILS # (AUTO) 4.5 K/uL (1.8-7.7); NEUTROPHILS % (AUTO) 63.9 % (42.2-75.2); PLATELET COUNT (AUTO) 384 K/uL (140-450); RED BLOOD CELL COUNT(AUTO) 3.71 MIL/uL (4.20-5.40); RED CELL DISTRIBUTION WIDTH 12.6 % (11.6-13.7); WHITE BLOOD COUNT (AUTO) 7.1 K/uL (4.8-10.8)
[2022-03-20 06:42] LABS: ALBUMIN 2.4 g/dL (3.4-5.0); ANION GAP 10.5 (8-16); CARBON DIOXIDE 29.8 mmol/L (21-32); CREATININE 0.8 mg/dL (0.6-1.3); POTASSIUM 4.3 mmol/L (3.5-5.1); TOTAL BILIRUBIN 0.2 mg/dL (0.0-1.0)
[2022-03-20 08:00] VITALS: BP 107/67
[2022-03-20] MEDS ORDERED: CEPH-588 PO (13:06)
[2022-03-20 15:14] VITALS: BP 125/86
--- NOTE | 2022-03-20 16:26 | NUR ---
DISCHARGE PATIENT IN STABLE CONDITION PER PRIMARY CARE PROVIDER ORDER. DISCHARGE INSTRUCTION GIVEN, DISCHARGE CONSENT SIGNED, IV ACCESS & WRIST BAND REMOVED, PATIENT SHOWER HERSELF BEFORE NURSE BROUGHT DISCHARGE CONSENT TO PATIENT ROOM.
== END 2022-03-20 16:48 | disposition home or self-care (01) | DRG 720 ==
LOC: MED 22:47 → MTU 03-17 00:56
PROVIDERS: ADMIT Hospitalist; ATTEND Hospitalist
DX: A41.9 Sepsis, unspecified organism (principal); J12.82 Pneumonia due to coronavirus disease 2019; E44.1 Mild protein-calorie malnutrition; R64 Cachexia; U07.1 COVID-19; E83.51 Hypocalcemia; E87.1 Hypo-osmolality and hyponatremia; L03.116 Cellulitis of left lower limb; F19.10 Other psychoactive substance abuse, uncomplicated; Z68.37 Body mass index [BMI] 37.0-37.9, adult
CPT/HCPCS: 36415; 73701; 80053; 80305; 81003; 83605; 83735; 85025; 87040; 87081; 87086; 99285; J0295; J0690; J1644; J2543; J3370; J7060; Q9967